=== PATIENT | male | born 1970 | race American Indian/Alaskan Native ===

== ENCOUNTER 2018-08-10 11:20 | Inpatient (IN) | payer OTHER ==
[2018-08-10] MEDS ORDERED: ASPIRIN PO ONE (11:36)
[2018-08-10 12:16] LABS: Basophils # (Auto) 0.1 K/mm3 (0.0-0.1); Basophils % (Auto) 1.5 % (0.0-1.8); Eosinophils % (Auto) 0.9 % (0.0-4.3); Hematocrit 48.2 % (35.5-45.6); Hemoglobin 16.1 gm/dl (11.8-15.2); Lymphocytes # (Auto) 1.3 K/mm3 (1.2-5.4); Lymphocytes % (Auto) 26.7 % (13.4-35.0); Mean Corpuscular HGB Conc 34 % (32-34); Mean Corpuscular Volume 81 fl (84-94); Monocytes # (Auto) 0.5 K/mm3 (0.0-0.8); Monocytes % (Auto) 10.7 % (0.0-7.3); Platelet Count 246 K/mm3 (140-440); Red Blood Count 5.95 M/mm3 (3.65-5.03); Red Cell Distribution Width 14.5 % (13.2-15.2)
[2018-08-10 12:40] LABS: BUN/Creatinine Ratio 8; Blood Urea Nitrogen 8 mg/dL (9-20); Calcium 9.2 mg/dL (8.4-10.2); Hemolysis Index 12
[2018-08-10] MEDS ORDERED: APRESOLINE IV ONE ×2 (13:06→16:12)
[2018-08-10] MEDS ORDERED: NACL 0.9% 1000 ML 1,000 ML IV ONE (13:06)
[2018-08-10] MEDS ORDERED: NITROSTAT SL PRN (15:13)
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
--- NOTE | 2018-08-10 15:53 | Cat Scan Report ---
CT HEAD WITHOUT CONTRAST: HISTORY: Blurry vision. TECHNIQUE: Sequential 2.5mm CT images. COMPARISON: none. FINDINGS: Cerebral Parenchyma: Within normal limits. Cerebellum: Within normal limits. Brainstem: Within normal limits. Ventricles: Normal. Sella: Normal. Extra-axial spaces: Normal. Basal Cisterns: Normal. Intracranial Hemorrhage: None. Midline Shift: None. Calvarium: Normal. Sinuses: Mild mucosal thickening is noted in the ethmoid sinuses and right maxillary sinus. The remaining sinuses are clear. Mastoid Air Cells: Normal. Visualized Orbits: Normal. IMPRESSION: Cranial CT scan within normal limits. Mild chronic sinus disease.
[2018-08-10] MEDS ORDERED: SOLU-Medrol IV ONE (15:54)
[2018-08-10] MEDS ORDERED: BENADRYL IV ONE (15:54)
[2018-08-10] MEDS ORDERED: PEPCID IV ONE (15:54)
[2018-08-10] MEDS ORDERED: REGLAN IV ONE (15:54)
--- NOTE | 2018-08-10 16:00 | Cat Scan Report ---
CTA CHEST: HISTORY: chest pain. COMPARISON: none. TECHNIQUE: Helical CT in 1.25mm intervals following IV contrast. Sagittal and coronal reformatted images. Rotational MIP images. FINDINGS: Contrast bolus is satisfactory. No pulmonary embolus is identified. The aorta is normal caliber throughout. No evidence for dissection or aneurysm. Thyroid gland: Normal. Tracheobronchial tree: Normal. Esophagus: Normal. Heart: Normal. Pericardium: Normal. Mediastinum: Normal. Lung Hale: normal. Pleural Spaces: Normal. Musculoskeletal: Normal. IMPRESSION: Unremarkable CTA chest.
[2018-08-10] MEDS ORDERED: DILAUDID IV PRN (17:37)
[2018-08-10] MEDS ORDERED: ZOFRAN IV PRN (17:37)
[2018-08-10] MEDS ORDERED: SODIUM CHLORIDE FLUSH SYRINGE 10 ML IV PRN (17:37)
[2018-08-10] MEDS ORDERED: IBUPROFEN PO PRN (17:37)
--- NOTE | 2018-08-10 17:37 | History and Physical Report ---
History of Present Illness Date of examination: 08/10/18 Medications and Allergies Allergies Allergy/AdvReac Type Severity Reaction Status Date / Time shellfish derived Allergy Anaphylaxis Verified 08/10/18 11:29 Iodinated Contrast- Oral and AdvReac Vomiting Verified 08/10/18 15:56 IV Dye Home Medications Medication Instructions Recorded Confirmed Last Taken Type No Known Home Medications [No 08/10/18 08/10/18 Unknown History Reported Home Medications] Active Meds: Active Medications Nitroglycerin (Nitrostat) 0.4 mg SL .Q5MIN PRN PRN Reason: Chest Pain Exam - Constitutional Vitals: Temp Pulse Resp BP Pulse Ox 97.7 F 94 H 18 207/125 89 08/10/18 11:25 08/10/18 16:18 08/10/18 14:45 08/10/18 16:18 08/10/18 14:45 Results - Labs CBC & Chem 7: 08/10/18 11:56 08/10/18 11:56 Labs: Laboratory Last Values WBC 4.8 K/mm3 (4.5-11.0) 08/10/18 11:56 RBC 5.95 M/mm3 (3.65-5.03) H 08/10/18 11:56 Hgb 16.1 gm/dl (11.8-15.2) H 08/10/18 11:56 Hct 48.2 % (35.5-45.6) H 08/10/18 11:56 MCV 81 fl (84-94) L 08/10/18 11:56 MCH 27 pg (28-32) L 08/10/18 11:56 MCHC 34 % (32-34) 08/10/18 11:56 RDW 14.5 % (13.2-15.2) 08/10/18 11:56 Plt Count 246 K/mm3 (140-440) 08/10/18 11:56 Lymph % (Auto) 26.7 % (13.4-35.0) 08/10/18 11:56 [place] % (Auto) 10.7 % (0.0-7.3) H 08/10/18 11:56 Eos % (Auto) 0.9 % (0.0-4.3) 08/10/18 11:56 Baso % (Auto) 1.5 % (0.0-1.8) 08/10/18 11:56 Lymph # 1.3 K/mm3 (1.2-5.4) 08/10/18 11:56 [place] # 0.5 K/mm3 (0.0-0.8) 08/10/18 11:56 Eos # 0.0 K/mm3 (0.0-0.4) 08/10/18 11:56 Baso # 0.1 K/mm3 (0.0-0.1) 08/10/18 11:56 Seg Neutrophils % 60.2 % (40.0-70.0) 08/10/18 11:56 Seg Neutrophils # 2.9 K/mm3 (1.8-7.7) 08/10/18 11:56 Sodium 138 mmol/L (137-145) 08/10/18 11:56 Potassium 3.9 mmol/L (3.6-5.0) 08/10/18 11:56 Chloride 97.6 mmol/L (98-107) L 08/10/18 11:56 Carbon Dioxide 26 mmol/L (22-30) 08/10/18 11:56 Anion Gap 18 mmol/L 08/10/18 11:56 BUN 8 mg/dL (9-20) L 08/10/18 11:56 Creatinine 1.0 mg/dL (0.8-1.5) 08/10/18 11:56 Estimated GFR > 60 ml/min 08/10/18 11:56 BUN/Creatinine Ratio 8 % 08/10/18 11:56 Glucose 110 mg/dL (75-100) H 08/10/18 11:56 Calcium 9.2 mg/dL (8.4-10.2) 08/10/18 11:56 Troponin T < 0.010 ng/mL (0.00-0.029) 08/10/18 14:23 - Imaging and Cardiology Imaging and Cardiology: CTA Chest IMPRESSION: Unremarkable CTA chest.
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
[2018-08-10] MEDS: COZAAR PO SCH (19:23)
[2018-08-10] MEDS ORDERED: COZAAR ONE (19:24)
[2018-08-10] MEDS: SODIUM CHLORIDE FLUSH SYRINGE 10 ML IV SCH (21:24)
[2018-08-10] MEDS: COREG PO SCH (21:24)
[2018-08-11 04:27] LABS: Basophils % (Auto) 0.3 % (0.0-1.8); Hematocrit 48.1 % (35.5-45.6); Hemoglobin 15.9 gm/dl (11.8-15.2); Lymphocytes # (Auto) 0.6 K/mm3 (1.2-5.4); Lymphocytes % (Auto) 10.6 % (13.4-35.0); Mean Corpuscular HGB Conc 33 % (32-34); Mean Corpuscular Volume 83 fl (84-94); Monocytes # (Auto) 0.1 K/mm3 (0.0-0.8); Monocytes % (Auto) 1.4 % (0.0-7.3); Platelet Count 260 K/mm3 (140-440); Red Blood Count 5.79 M/mm3 (3.65-5.03); Red Cell Distribution Width 14.7 % (13.2-15.2)
[2018-08-11 04:45] LABS: Alanine Aminotransferase 18 units/L (7-56); Albumin 4.3 g/dL (3.9-5); BUN/Creatinine Ratio 11; Blood Urea Nitrogen 11 mg/dL (9-20); Calcium 9.7 mg/dL (8.4-10.2); Hemolysis Index 22
--- NOTE | 2018-08-11 06:57 | Event Note ---
Date: 08/10/18 See H/p in reports Htn emergency Chest pain-R/o AR
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
[2018-08-11] MEDS ORDERED: LEXISCAN IV ONE ×2 (09:28→09:30)
[2018-08-11] MEDS ORDERED: APRESOLINE ONE (10:01)
[2018-08-11] MEDS ORDERED: APRESOLINE PO ONE (10:01)
[2018-08-11] MEDS ORDERED: APRESOLINE IV PRN (11:02)
[2018-08-11] MEDS: NORVASC PO SCH (12:51)
[2018-08-11] MEDS: COREG PO SCH ×2 (12:51→21:33)
[2018-08-11] MEDS: COZAAR PO SCH (12:51)
[2018-08-11] MEDS: SODIUM CHLORIDE FLUSH SYRINGE 10 ML IV SCH ×2 (12:52→21:33)
[2018-08-11] MEDS: LOVENOX SUB-Q SCH (12:52)
[2018-08-11] MEDS: TYLENOL PO PRN (12:54)
[2018-08-11] MEDS: APRESOLINE PO SCH ×2 (13:34→21:34)
--- NOTE | 2018-08-11 14:56 | Treadmill Report ---
NUCLEAR PERFUSION SCAN REFERRING PHYSICIAN: Hospitalist service. PROTOCOL: The patient was brought to the stress lab in a postoperative state, given 10 mCi of technetium at rest. The patient underwent rest imaging. The patient underwent Lexiscan stress test. At peak stress, the patient was given 26 mCi of technetium 99m. Shortly afterwards, the patient underwent stress imaging. Raw imaging reveals mild GI artifact. No significant motion defect. SPECT imaging examined carefully in the horizontal long axis, vertical long axis, and short axis views. There is normal homogenous uptake of radioisotope in all reported segments. No evidence of a significant fixed or reversible perfusion defects suggestive of prior infarction or ischemia. Gated wall motion reveals normal systolic performance, estimated at 55%. No TID. CONCLUSIONS: 1. Normal myocardial perfusion scan without evidence of active ischemia or prior infarction. 2. Probably normal LV function, estimated at 55%. No TID. JOB# [id number] SBM/NTS
--- NOTE | 2018-08-11 15:05 | Progress Note ---
Assessment and Plan Assessment and plan: Hypertensive urgency BP control with multiple drugs BP still uncontrolled Add Norvasc to alvin, Coreg Diabetes mellitus type 2 with A1c 6.6 Diabetic diet Accuchek qac and hs Obesity Full code status History Interval history: Chest tightness, now resolved No Shortness of breath Hospitalist Physical - Physical exam Narrative exam: GEN: Not in acute distress, obese HEENT: Normocephalic, atraumatic, Neck: supple, No JVD Lungs: Clear to auscultation, no wheeze Heart:S1 and S2 regular, no murmurs, rubs or gallop, Abd:soft, non tender, non distended, normal bowel sounds Ext: No edema, no clubbing or cyanosis Neuro: AAO x 3, No focal signs - Constitutional Vitals: Temp Pulse Resp BP Pulse Ox 98.0 F 75 20 209/119 99 08/11/18 07:48 08/11/18 10:10 08/11/18 07:48 08/11/18 10:10 08/11/18 07:48 Results - Labs CBC & Chem 7: 08/11/18 04:12 08/11/18 04:12 Labs: Laboratory Last Values WBC 5.4 K/mm3 (4.5-11.0) 08/11/18 04:12 RBC 5.79 M/mm3 (3.65-5.03) H 08/11/18 04:12 Hgb 15.9 gm/dl (11.8-15.2) H 08/11/18 04:12 Hct 48.1 % (35.5-45.6) H 08/11/18 04:12 MCV 83 fl (84-94) L 08/11/18 04:12 MCH 27 pg (28-32) L 08/11/18 04:12 MCHC 33 % (32-34) 08/11/18 04:12 RDW 14.7 % (13.2-15.2) 08/11/18 04:12 Plt Count 260 K/mm3 (140-440) 08/11/18 04:12 Lymph % (Auto) 10.6 % (13.4-35.0) L 08/11/18 04:12 [place] % (Auto) 1.4 % (0.0-7.3) 08/11/18 04:12 Eos % (Auto) 0.0 % (0.0-4.3) 08/11/18 04:12 Baso % (Auto) 0.3 % (0.0-1.8) 08/11/18 04:12 Lymph # 0.6 K/mm3 (1.2-5.4) L 08/11/18 04:12 [place] # 0.1 K/mm3 (0.0-0.8) 08/11/18 04:12 Eos # 0.0 K/mm3 (0.0-0.4) 08/11/18 04:12 Baso # 0.0 K/mm3 (0.0-0.1) 08/11/18 04:12 Seg Neutrophils % 87.7 % (40.0-70.0) H 08/11/18 04:12 Seg Neutrophils # 4.7 K/mm3 (1.8-7.7) 08/11/18 04:12 Sodium 141 mmol/L (137-145) 08/11/18 04:12 Potassium 3.9 mmol/L (3.6-5.0) 08/11/18 04:12 Chloride 101.3 mmol/L (98-107) 08/11/18 04:12 Carbon Dioxide 19 mmol/L (22-30) L D 08/11/18 04:12 Anion Gap 25 mmol/L 08/11/18 04:12 BUN 11 mg/dL (9-20) 08/11/18 04:12 Creatinine 1.0 mg/dL (0.8-1.5) 08/11/18 04:12 Estimated GFR > 60 ml/min 08/11/18 04:12 BUN/Creatinine Ratio 11 % 08/11/18 04:12 Glucose 190 mg/dL (75-100) H 08/11/18 04:12 Hemoglobin A1c 6.6 % (4-6) H 08/10/18 11:56 Calcium 9.7 mg/dL (8.4-10.2) 08/11/18 04:12 Total Bilirubin 0.50 mg/dL (0.1-1.2) 08/11/18 04:12 AST 19 units/L (5-40) 08/11/18 04:12 ALT 18 units/L (7-56) 08/11/18 04:12 Alkaline Phosphatase 76 units/L (35-129) 08/11/18 04:12 Troponin T < 0.010 ng/mL (0.00-0.029) 08/10/18 23:40 Total Protein 7.1 g/dL (6.3-8.2) 08/11/18 04:12 Albumin 4.3 g/dL (3.9-5) 08/11/18 04:12 Albumin/Globulin Ratio 1.5 % 08/11/18 04:12
[2018-08-11] MEDS ORDERED: SODIUM BICARBONATE IV ONE (22:59)
[2018-08-12 04:35] LABS: BUN/Creatinine Ratio 13; Blood Urea Nitrogen 12 mg/dL (9-20); Calcium 8.8 mg/dL (8.4-10.2); Hemolysis Index 17
[2018-08-12] MEDS: APRESOLINE PO SCH ×2 (06:30→15:48)
[2018-08-12] MEDS: LOVENOX SUB-Q SCH (09:41)
[2018-08-12] MEDS: NORVASC PO SCH (09:42)
[2018-08-12] MEDS: COREG PO SCH (09:42)
[2018-08-12] MEDS: TYLENOL PO PRN (13:08)
[2018-08-12] MEDS ORDERED: NORVASC PO STA (13:27)
[2018-08-12] MEDS: SODIUM CHLORIDE FLUSH SYRINGE 10 ML IV SCH (13:58)
--- NOTE | 2018-08-12 16:05 | Discharge Summary ---
Providers - Providers Date of Admission: 08/10/18 17:17 Date of discharge: 08/12/18 Attending physician: XENIA LUCAS 08/12/18 10:20 Consult to Dietitian/Nutrition [CONS] Routine Physician Instructions: Reason For Exam: Reason for Consult: Diet education Primary care physician: [employer] Hospitalization Condition: Good Hospital course: Patient is 48-year-old. 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 he also complained of chest pain. He disease initial BP was 193/123. He was given Aspirin for chest pain and given Coreg, Losartan and Hydralazine for elevated blood pressure admitted. On anti- hypertensives his BP improved. Stress test was done and was negative. He was subsequently discharged home to follow as outpatient. he was retirement plan counselor on compliance. Total time spent on discharge, 32 mins Disposition: TO HOME OR SELFCARE - Discharge Diagnoses (1) GERD (gastroesophageal reflux disease) Status: Acute (2) Chest pain Status: Acute (3) Hypertensive emergency Status: Acute Core Measure Documentation - Palliative Care Palliative Care/ Comfort Measures: Not Applicable - Core Measures Any of the following diagnoses?: none Exam - Constitutional Vitals: Temp Pulse Resp BP Pulse Ox 98.7 F 78 18 168/110 99 08/12/18 15:34 08/12/18 15:34 08/12/18 15:34 08/12/18 15:34 08/12/18 15:34 Plan Activity: advance as tolerated Diet: low fat, low cholesterol, low salt, diabetic Additional Instructions: 1.Follow up with Dr. Lencho Jean in 3-5 days. 2.Check Fingerstick blood glucose 2 times daily and show records to PCP. Follow up with: PRIMARY CARE, [Primary Care Provider] - 3-5 Days Prescriptions: amLODIPine [Norvasc] 10 mg PO DAILY #30 tab Atenolol [Tenormin] 50 mg PO DAILY #30 tab hydrALAZINE [Apresoline TAB] 100 mg PO TID #90 tab
[2018-08-12 17:09] VITALS: BP 158/98
== END 2018-08-12 19:37 | disposition home or self-care (01) | DRG 305 ==
LOC: ED 11:20 → 4A 17:17
PROVIDERS: ADMIT Internal Medicine; ATTEND Internal Medicine
DX: I16.1 Hypertensive emergency (principal); F17.210 Nicotine dependence, cigarettes, uncomplicated; R07.9 Chest pain, unspecified; E66.9 Obesity, unspecified; Z82.49 Family history of ischemic heart disease and other diseases of the circulatory system; Z91.041 Radiographic dye allergy status; Z91.013 Allergy to seafood; Z68.35 Body mass index [BMI] 35.0-35.9, adult; Z71.6 Tobacco abuse counseling
CPT/HCPCS: 36415; 70450; 71045; 71275; 78452; 80048; 80053; 83036; 84484; 85025; 93005; 93010; 93017; 96361; 96374; 96375; 99406; G0378; A9502; J0360; J1200; J1650; J2765; J2785; J2930; J7030; Q9967